=== PATIENT | male | born 1980 | race Two or more races ===

== ENCOUNTER 2017-03-21 05:35 | Emergency (ER) | payer OTHER ==
[2017-03-21 05:40] VITALS: O2SAT 93
[2017-03-21] MEDS ORDERED: LORazepam 1 MG TAB PO ONE (06:03)
--- NOTE | 2017-03-21 06:59 | EDPHY ---
H & P Stated Complaint: HTN BY HX, INCREASED TONIGHT , WORRIED SO TOOK 3 SHOTS OF ETOH TO THIN BLOO HPI/ROS: HPI The patient presents with elevated blood pressures over the last several weeks. He comes in this morning because at 4:00 a.m. he awoke and was listening to a podcast in bed about hypertension. He developed hot flashes and sweating and felt as if he was having a panic attack. He asked a roommate drive him in here. He denies any chest pain, shortness of breath, nausea or vomiting. Checks his pressures daily and they have been somewhat elevated in the 160 systolic. He has not been seen by a primary care doctor. He is fearful of taking medication. He did quit speaking about 2 months ago. He has a heavy alcohol drinker. Because of the way he was feeling this morning, took 4 shots vodka. REVIEW OF SYSTEMS Constitutional: No fever, no chills. Eyes: No discharge. ENT: No sore throat. Cardiovascular: No chest pain, no palpitations. Respiratory: No cough, no shortness of breath. Gastrointestinal: No abdominal pain, no vomiting. Genitourinary: No hematuria. Musculoskeletal: No back pain. Skin: No rashes. Neurological: No headache. PMHx: Healthy Soc Hx: Alcohol abuse PHYSICAL General Appearance: Alert, no distress Eyes: Pupils equal and round no pallor or injection ENT, Mouth: Mucous membranes moist Respiratory: There are no retractions, lungs are clear to auscultation Cardiovascular: Regular rate and rhythm Gastrointestinal: Abdomen is soft and non-tender, no masses, bowel sounds normal Neurological: A&O, moves all extremities Skin: Warm and dry, no rashes Musculoskeletal: Neck is supple non tender Extremities: symmetrical, full range of motion Psychiatric: Patient is oriented X 3, there is no agitation Source: Patient Exam Limitations: No limitations - Personal History Current Tetanus/Diphtheria Vaccine: Unsure Current Tetanus Diphtheria and Acellular Pertussis (TDAP): Unsure - Medical/Surgical History Hx Asthma: No Hx Chronic Respiratory Disease: No Hx Diabetes: No Hx Cardiac Disease: No Hx Renal Disease: No Hx Cirrhosis: No Hx Alcoholism: Yes Hx HIV/AIDS: No Hx Splenectomy or Spleen Trauma: No Other PMH: HTN, - Social History Smoking Status: Former smoker Constitutional: Initial Vital Signs Temperature (C) 36.9 C 03/21/17 05:36 Heart Rate 96 03/21/17 05:36 Respiratory Rate 18 03/21/17 05:36 Blood Pressure 163/127 H 03/21/17 05:36 O2 Sat (%) 93 03/21/17 05:36 O2 Delivery Mode Room Air Allergies/Adverse Reactions: No Known Allergies Allergy (Unverified 03/21/17 05:39) Home Medications: Medication Instructions Recorded NK [No Known Home Meds] 03/21/17 Medical Decision Making - Diagnostics EKG Interpretation: EKG: Complete interpretation has been separately recorded in the [facility] archive. Summary impression: Normal sinus rhythm Differential Diagnosis: This is a 36-year-old male who presents with concern about elevated blood pressure which he has had over the last several weeks. His systolic blood pressures have been in the 160s. He does not have any chest pain, abdominal pain, headache, confusion. He complains of what sounds like anxiety attack earlier tonight which is now completely resolved. He would benefit from follow up with primary care for possible initiation of anti hypertensives. However he does not want start taking these. He says his diet is healthy and he has recently quit smoking. EKG was performed which showed no signs are deck ischemia. He will discharged home with information for [facility]. - Data Points Medications Given: Discontinued Medications Lorazepam (Ativan) 1 mg PO EDNOW ONE Stop: 03/21/17 06:04 Last Admin: 03/21/17 06:06 Dose: 1 mg Departure - Departure Disposition: Home, Routine, Self-Care Clinical Impression: Elevated blood pressure reading Condition: Good Instructions: Chronic Hypertension (ED) Additional Instructions: I recommend that you follow up with the primary care doctor for your blood pressure. You may need to start on medication. Please record your blood pressures on your phone or on a piece of paper. Referrals: [facility],. [Clinic] - As per Instructions
--- NOTE | 2017-03-21 07:02 | CPEKG ---
Heart Rate: 74 RR Interval: 811 P-R Interval: 168 QRSD Interval: 88 QT Interval: 376 QTC Interval: 418 P [place]: 29 QRS [place]: 9 T Wave [place]: 6 EKG Severity - NORMAL ECG - EKG Impression: SINUS RHYTHM Electronically Signed By: Galen Rhoades 26-Mar-2017 11:44:02
[2017-03-21 07:16] VITALS: BP 137/92; PULSE 71; RESP 16; TEMP 97.9
== END 2017-03-21 07:18 | disposition home or self-care (01) ==
DX: I10 Essential (primary) hypertension (principal); Z87.891 Personal history of nicotine dependence

== ENCOUNTER → 2018-02-24 | Outpatient (CLI) | payer OTHER | LOC: BMCIMAGING 09:28 | PROVIDERS: ATTEND Emergency Medicine | DX: M79.645 Pain in left finger(s) (principal) ==